=== PATIENT | male | born 1980 | race African-American/Black ===

== ENCOUNTER 2020-12-20 11:29 | Emergency (ER) | payer OTHER, SELFPAY ==
[2020-12-20 11:38] VITALS: BP 135/91; PULSE 83; RESP 16; TEMP 36; O2SAT 99
[2020-12-20 11:45] VITALS: BP 135/91; PULSE 83; RESP 16; TEMP 36; O2SAT 99
--- NOTE | 2020-12-20 11:45 | ED.EAR ---
HPI - Ear Problem General Chief complaint: Dental/Oral Stated complaint: ear pain Time Seen by Provider: 12/20/20 11:45 Source: patient and RN notes reviewed Mode of arrival: ambulatory Limitations: no limitations History of Present Illness HPI Narrative: 40-year-old male presents to the [facility] with complaints of right ear and right-sided dental pain. States it started several days ago. No treatment prior to arrival. No facial swelling noted. Related Data Allergies Allergy/AdvReac Type Severity Reaction Status Date / Time No Known Allergies Allergy Unverified 11/10/17 16:30 Review of Systems Review of Systems: All systems reviewed & are unremarkable except as noted in HPI and below Constitutional: Constitutional: Reports no additional constitutional complaints, Denies chills and Denies fever(s) Eyes: Eyes: Reports no additional eye complaints ENT: Reports as per HPI Comments: Right ear and dental pain Cardiovascular: Cardiovascular: Reports no additional cardiovascular complaints and Denies chest pain Respiratory: Respiratory: Reports no additional respiratory complaints and Denies cough Gastrointestinal: Gastrointestinal: Reports no additional gastrointestinal complaints Musculoskeletal: Musculoskeletal: Reports no additional musculoskeletal complaints Integumentary/Breasts: Skin/Breast: Reports system reviewed and no additional complaints, except as docu Neurologic: Reports system reviewed and no additional complaints, except as documented Psychiatric: Psychiatric: Reports no additional psychiatric complaints Allergic/Immunologic: Allergic/Immunologic: Reports no additional allergic/immunologic complaints PMFSH Past Medical History Medical History (Updated 12/20/20 @ 16:38 by Maryann Rey) No significant medical problems Surgical History Surgical History (Updated 12/20/20 @ 16:38 by Maryann Rey) No significant past surgical history Social History Social History (Updated 12/20/20 @ 16:38 by Maryann Rey) Smoking status: Current every day smoker Tobacco type: cigarettes Substance use: current Substance use type: marijuana Living arrangements: with family Gender identity (if verbalized by the patient): Male Comments At the time of my signature, I reviewed and agree with the nursing past medical, surgical, social, and family history. There is no relevant family history pertinent to the patient complaint. Exam Const: General: healthy appearing, no acute distress and alert Nutritional Appearance: well nourished and obese Orientation/consciousness: patient oriented x3 Limitations: no limitations HENMT: Head: normal to inspection Ears: external ears normal, TM's normal bilaterally and EAC's normal Mouth: Yes Abnormal oral and palatal mucosa present erythematous (Right lower posterior) Teeth and gingiva: abnormal tooth and associated gingiva (Generalized dentition poor, multiple caries and decay) Eyes: Pupils: Equal, round and reactive pupils present Neck: Neck: normal visual inspection, no lymphadenopathy and no meningeal signs Chest: Chest palpation & inspection: normal inspection of the chest Resp: Effort & Inspection: normal respiratory effort and no use of accessory muscles Auscultation: clear to auscultation bilaterally, no crackles, no rales, no rhonchi and no wheezes Cardio: Rate: regular rate Rhythm: regular rhythm Back/Spine/Pelvis: Back: no CVA tenderness Skin: General skin exam: normal color Rashes: no rashes Wounds: no wounds Neuro: General: patient oriented x3, moves all extremities, no meningeal signs and no focal motor deficits Speech: normal speech Gait exam (Neuro): Normal gait present Extrem: General: normal to inspection Psych: Appearance: grossly normal and well kempt Mental Status: mental status grossly normal Affect: normal affect Attitude: cooperative Thought content: Yes Normal thought content present Course Course Emergency C
== END 2020-12-20 11:58 | disposition home or self-care (01) ==
PROVIDERS: Emergency Provider Nurse Practitioner
DX: K08.89 Other specified disorders of teeth and supporting structures (principal); K04.7 Periapical abscess without sinus; F17.200 Nicotine dependence, unspecified, uncomplicated
CPT/HCPCS: 99213; G0463

== ENCOUNTER 2021-10-07 15:03 | Emergency (ER) | payer OTHER, SELFPAY ==
[2021-10-07 15:05] VITALS: BP 150/91; PULSE 96; RESP 14; TEMP 36.7; O2SAT 99
--- NOTE | 2021-10-07 15:32 | ED.GENADULT ---
HPI - General Adult General Chief complaint: Abdominal Pain Stated complaint: ABD PAIN Time Seen by Provider: 10/07/21 15:11 History of Present Illness HPI narrative: 40-year-old male presents the emergency room for evaluation of dysuria. Patient states that he has been having unprotected sex recently and feels he may have been exposed to an STD. Patient denies any testicular pain denies any masses or lesions on his genitalia. Related Data Allergies Allergy/AdvReac Type Severity Reaction Status Date / Time No Known Allergies Allergy Verified 10/07/21 15:32 Review of Systems Review of Systems: CONSTITUTIONAL: Denies fever, chills, or sweats. EYES: Denies visual changes, redness, or discharge. ENT: Denies rhinorrhea, congestion, sore throat, or otalgia. CARDIOVASCULAR: Denies chest pain, palpitations, or edema. RESPIRATORY: Denies cough or dyspnea. GASTROINTESTINAL: Denies abdominal pain, nausea, vomiting, or diarrhea. GENITOURINARY: Reports dysuria SKIN: Denies rash or itching. MUSCULOSKELETAL: Denies back pain, joint pain, or myalgia. NEUROLOGIC: Denies headache, numbness, dizziness, or weakness. PSYCHIATRIC: Denies anxiety or depression. [facility] Past Medical History Medical History No significant medical problems Surgical History Surgical History No significant past surgical history Social History Social History Smoking status: Current every day smoker Tobacco type: cigarettes Substance use: current Substance use type: marijuana Gender identity (if verbalized by the patient): Male Exam Narrative: GENERAL: Well-appearing, well-nourished, no physical limitations, and in no acute distress. HEAD: Normocephalic, atraumatic. EYES: Conjunctivae normal, PERRLA and EOMI. CHEST: Clear to auscultation. No respiratory distress. No wheezes rales or rhonchi. No tenderness. HEART: Regular rate and rhythm. No murmur heard. Normal peripheral pulses. ABDOMEN: Soft, nontender, nondistended, normal active bowel sounds. : Deferred BACK: No CVA tenderness; No cervical/thoracic/lumbar tenderness, step-offs, bony abnormality; FROM EXTREMITIES: Normal range of motion. No edema. No clubbing or cyanosis SKIN: Warm, dry, no rash. No noted wounds NEURO: No focal deficits. Alert and oriented x3. MAEW. CN's II-XI intact bilaterally, normal gait PSYCH: Cooperative. Normal mood and affect. Course Vital Signs Vital signs: Vital Signs Temperature 36.7 C 10/07/21 15:05 Pulse Rate 96 10/07/21 15:05 Respiratory Rate 14 10/07/21 15:05 Blood Pressure 150/91 H 10/07/21 15:05 Pulse Oximetry 99 10/07/21 15:05 Oxygen Delivery Room Air 10/07/21 15:05 Temperature 36.7 C 10/07/21 15:05 Pulse Rate 96 10/07/21 15:05 Respiratory Rate 14 10/07/21 15:05 Blood Pressure 150/91 H 10/07/21 15:05 Pulse Oximetry 99 10/07/21 15:05 Oxygen Delivery Room Air 10/07/21 15:05 Medical Decision Making Vital Signs Vital Signs: Vital Signs Temperature 36.7 C 10/07/21 15:05 Pulse Rate 96 10/07/21 15:05 Respiratory Rate 14 10/07/21 15:05 Blood Pressure 150/91 H 10/07/21 15:05 Pulse Oximetry 99 10/07/21 15:05 Oxygen Delivery Room Air 10/07/21 15:05 Temperature 36.7 C 10/07/21 15:05 Pulse Rate 96 10/07/21 15:05 Respiratory Rate 14 10/07/21 15:05 Blood Pressure 150/91 H 10/07/21 15:05 Pulse Oximetry 99 10/07/21 15:05 Oxygen Delivery Room Air 10/07/21 15:05 Lab Data Labs: Lab Results 10/07/21 10/07/21 Range/Units 15:34 15:34 Urine Color Yellow (Yellow) Urine Appearance Slightly cloudy (Clear) Urine pH 6.0 (5.0-9.0) Ur Specific [place] 1.020 (1.001-1.035) Urine Protein Negative (Negative) mg/dL Urine Glucose (UA) Negative (Negative) mg/dL Urine Ketones Negativ
[2021-10-07] MEDS: cefTRIAXone 1 GM VIAL 0.5 GM IM (15:39)
[2021-10-07] MEDS: WATER, STERILE FOR INJECTION 10 ML VIAL XX (15:39)
[2021-10-07] MEDS: metroNIDAZOLE 250 MG TABLET 2000 MG PO (15:40)
[2021-10-07 15:52] LABS: Appearance Urine Slightly Cloudy (Clear); Bilirubin Urine Negative (Negative); Color Urine Yellow (Yellow); Glucose Urine UA Negative (Negative); Ketones Urine Negative (Negative); Leukocyte Esterase Ur 1+ LEU/UL (Negative); Nitrate Urine Negative (Negative); Protein Urine Negative (Negative)
[2021-10-07 16:30] LABS: Amorphous Sediment Urine Few; Bacteria Urine Trace /hpf; Mucus Urine Rare /lpf; Squamous Epithelial Cell Urine Rare /hpf (Few); WBC Urine 51-75 /hpf
[2021-10-07 16:31] LABS: Add Urine Microscopic? YES; Blood Urine Trace-Intact (Negative)
== END 2021-10-07 16:42 | disposition home or self-care (01) ==
LOC: ANHED 16:26
PROVIDERS: Emergency Provider Nurse Practitioner Family
DX: Z20.2 Contact with and (suspected) exposure to infections with a predominantly sexual mode of transmission (principal); Z72.51 High risk heterosexual behavior; F17.210 Nicotine dependence, cigarettes, uncomplicated
CPT/HCPCS: 81001; 87086; 87491; 87591; 87661; 96372; 99283; A9270; J0696

== ENCOUNTER 2022-04-17 20:19 | Emergency (ER) | payer OTHER, SELFPAY ==
[2022-04-17 20:21] VITALS: BP 151/77; PULSE 96; RESP 16; TEMP 36.3; O2SAT 100
[2022-04-17 20:40] LABS: Basophils Absolute Auto 0.1 K/mm3 (0.0-0.1); Basophils Percent Auto 0.4 % (0.2-1.2); Eosinophils Absolute Auto 0.2 K/mm3 (0-0.3); Hematocrit 44.6 % (42.0-52.0); Hemoglobin 14.8 g/dL (14.0-18.0); Immature Granulocyte Absolute 0.14 K/mm3 (0.00-0.031); Immature Granulocyte Percent A 1.2 % (0-0.5); Lymphocytes Absolute Auto 3.32 K/mm3 (0.9-3.2); Lymphocytes Percent Auto 28.4 % (18.3-44.2); Mean Corpuscular HGB Conc 33.2 g/dl (32-36); Mean Corpuscular Hemoglobin 27.6 pg (26-34); Mean Corpuscular Volume 83.1 fl (80-100); Mean Platelet Volume 9.7 fl (7.4-10.4); Monocytes Absolute Auto 0.7 K/mm3 (0.1-0.6); Monocytes Percent Auto 5.6 % (2.6-8.5); Neutrophils Absolute Auto 7.3 K/mm3 (1.3-6.7); Neutrophils Percent Auto 62.4 % (45.5-73.1); Platelet Count Result 285 k/mm3 (150-375); Red Blood Count 5.37 M/mm3 (4.6-6.20); White Blood Count 11.7 K/mm3 (4.5-10.0)
[2022-04-17 20:50] LABS: Alanine Aminotransferase 25 U/L (6-50); Albumin Level 4.4 g/dL (3.5-5.1); Alkaline Phosphatase 71 U/L (38-126); Anion Gap 6 mmol/L (8-16); Aspartate Amino Transferase 23 U/L (17-59); Bilirubin,Total 0.4 mg/dL (0.2-1.3); Blood Urea Nitrogen 11 mg/dL (9-20); Calcium 8.5 mg/dL (8.4-10.2); Carbon Dioxide 27 mmol/L (22-30); Chloride 100 mmol/L (98-107); Estimated CRCL calculation 104 ml/min; Estimated Glomerular Filt Rate > 60; Glucose 153 mg/dL (65-110); Lipase 80 U/L (23-300); Potassium 4.1 mmol/L (3.4-5.0); Sodium 133 mmol/L (137-145)
[2022-04-17 20:58] LABS: Add Urine Microscopic? YES; Appearance Urine Clear (Clear); Bilirubin Urine Negative (Negative); Blood Urine Trace-Intact (Negative); Color Urine Yellow (Yellow); Glucose Urine UA Negative (Negative); Ketones Urine Negative (Negative); Leukocyte Esterase Ur Negative LEU/UL (Negative); Nitrate Urine Negative (Negative); Protein Urine Negative (Negative); Specific Grav Ur 1.015 (1.001-1.035); Urobilinogen Urine 0.2 mg/dL (<2.0)
[2022-04-17 21:13] LABS: Squamous Epithelial Cell Urine Rare /hpf (Few)
--- NOTE | 2022-04-17 23:24 | ED.GENADULT ---
HPI - General Adult General Chief complaint: Urogenital-Male Stated complaint: Syphilis Time Seen by Provider: 04/17/22 22:34 History of Present Illness HPI narrative: this is a 41-year-old male presenting to ED with a chief complaint of syphilis. [facility]. He then received a letter in the mail stating tested positive for syphilis. He has never received treatment. He did notice that he had a painless ulcer in his penis 3 or 4 months ago. He denies any rash to his hands or feet, neurologic findings or any other complaints this time. Related Data Allergies Allergy/AdvReac Type Severity Reaction Status Date / Time No Known Allergies Allergy Verified 10/07/21 15:32 [facility] Past Medical History Medical History No significant medical problems Surgical History Surgical History No significant past surgical history Social History Social History Smoking status: Current every day smoker Tobacco type: cigarettes Substance use: current Substance use type: marijuana Gender identity (if verbalized by the patient): Male Exam Narrative: APPEARANCE: No apparent distress. Head: atraumatic. EYES: EOMI, NOSE: Atraumatic NECK: Trachea midline RESPIRATORY: No increased rate of breathing CARDIOVASCULAR: RRR, ABDOMINAL: Non-distended MUSCULOSKELETAl: No obvious deformities Genital exam: refused by patient NEURO: Alert. Moving 4/4 extremities SKIN:: Warm, dry. Normal color PSYCHIATRIC: Normal affect Course Vital Signs Vital signs: Vital Signs Temperature 97.4 F L 04/17/22 20:21 Pulse Rate 96 04/17/22 20:21 Respiratory Rate 16 04/17/22 20:21 Blood Pressure 151/77 H 04/17/22 20:21 Pulse Oximetry 100 04/17/22 20:21 Oxygen Delivery Room Air 04/17/22 20:21 Temperature 97.4 F L 04/17/22 20:21 Pulse Rate 96 04/17/22 20:21 Respiratory Rate 16 04/17/22 20:21 Blood Pressure 151/77 H 04/17/22 20:21 Pulse Oximetry 100 04/17/22 20:21 Oxygen Delivery Room Air 04/17/22 20:21 Medical Decision Making MDM Narrative Medical decision making narrative: Presentation: 41-year-old with a positive syphilis test in outside clinic DDX includes but is not limited to: syphilis, gonorrhea/chlamydia Co-morbidities complicating care: none External Chart Review: [facility] patient [facility] Hx from independent Sources: [facility] Discussion of Management/Consultants: none Independent interpretation of studies: none Dx tests considered but not ordered: RPR was considered but already positive at outside facility. Shared decision making: Patient would like treatment for syphilis. I have offered treatment for the other STDs but declined stating he was just tested and sepsis was only 1 came back positive. Procedures: None Interventions: 2.4 million units IM penicillin Vital Signs Vital Signs: Vital Signs Temperature 97.4 F L 04/17/22 20:21 Pulse Rate 96 04/17/22 20:21 Respiratory Rate 16 04/17/22 20:21 Blood Pressure 151/77 H 04/17/22 20:21 Pulse Oximetry 100 04/17/22 20:21 Oxygen Delivery Room Air 04/17/22 20:21 Temperature 97.4 F L 04/17/22 20:21 Pulse Rate 96 04/17/22 20:21 Respiratory Rate 16 04/17/22 20:21 Blood Pressure 151/77 H 04/17/22 20:21 Pulse Oximetry 100 04/17/22 20:21 Oxygen Delivery Room Air 04/17/22 20:21 Lab Data 04/17/22 20:28 04/17/22 20:28 Labs: Lab Results 04/17/22 04/17/22 04/17/22 Range/Units 20:28 20:28 20:28 WBC 11.7 H (4.5-10.0) K/mm3 RBC 5.37 (4.6-6.20) M/mm3 Hgb 14.8 (14.0-18.0) g/dL Hct 44.6 (42.0-52.0) % MCV 83.1 (80-100) fl MCH 27.6 (26-34) pg MCHC 33.2 (32-36) g/
[2022-04-17] MEDS: PENICILLIN G BENZATHINE 2,400,000 UNITS/4 ML SYRINGE 2400000 UNITS IM (23:45)
[2022-04-18 09:21] LABS: Rapid Plasma Reagin Non-Reactive (NonReactive)
== END 2022-04-18 00:17 | disposition home or self-care (01) ==
PROVIDERS: Nurse Practitioner Family; Emergency Provider Emergency Medicine
DX: A53.9 Syphilis, unspecified (principal); F17.210 Nicotine dependence, cigarettes, uncomplicated
CPT/HCPCS: 36415; 80053; 81001; 83690; 85025; 86592; 96372; 99283; J0561